=== PATIENT | female | born 1980 | race Hispanic/Latino ===

== ENCOUNTER 2016-08-28 10:27 | Day surgery (SDC) | payer OTHER ==
[2016-08-25 10:11] VITALS: BMI 21.9
[2016-08-28 11:06] LABS: MEAN CELL VOLUME 87.3 fl (81.0-99.0); MEAN CORPUSCULAR HEMOGLOBIN 29.8 pg (27.0-31.0); MEAN CORPUSCULAR HGB CONC 34.1 g/dL (33.0-37.0); RBC 4.72 Mil/uL (3.80-5.20); RED CELL DISTRIBUTION WIDTH 12.3 % (11.5-14.5); WHITE BLOOD COUNT 4.8 K/uL (4.8-10.8)
[2016-08-28] MEDS ORDERED: Bupivacaine 0.5% Inj(30mL) ONE ×2 (11:22→11:23)
[2016-08-28] MEDS ORDERED: Propofol 10 mg/ml Inj (20 ML) ONE (11:35)
[2016-08-28] MEDS ORDERED: ePHEDrine 50 mg/ml Inj ONE (11:36)
[2016-08-28] MEDS ORDERED: Midazolam 2 MG/2 ML VIAL ONE (11:36)
[2016-08-28] MEDS ORDERED: Rocuronium 10 mg/ml (5 ml) ONE (11:37)
[2016-08-28] MEDS ORDERED: Succinylcholine 200 mg/10 ml Inj IV ONE (11:37)
[2016-08-28] MEDS ORDERED: Lactated Ringer's 1,000 ML IV ONE ×3 (12:40→16:25)
[2016-08-28] MEDS ORDERED: Dexamethasone 4 mg/1 ml ONE (13:15)
[2016-08-28] MEDS ORDERED: Neostigmine Methylsulfate 3mg/3ml Syringe IV ONE (13:15)
[2016-08-28] MEDS ORDERED: Desflurane Inhalation Anesthetic Liq (240 ml) ONE (13:21)
[2016-08-28] MEDS ORDERED: Lactated Ringer's 1,000 ML IV SCH (14:11)
[2016-08-28] MEDS: HYDROmorphone 0.5 mg/0.5 ml ISec IVP PRN ×2 (14:25→14:40)
[2016-08-28] MEDS ORDERED: Oxycodone/Acetaminophen 5/325 mg Tab PO PRN (15:00)
[2016-08-28 16:42] VITALS: RESP 18
[2016-08-28 19:18] VITALS: O2SAT 99
[2016-08-28 19:21] VITALS: BP 106/65; PULSE 77; TEMP 97.9
--- NOTE | 2016-08-29 12:38 | PCM.OP ---
Operative Report - Operative Report Date of Surgery/Procedure: 08/28/16 Time of Surgery/Procedure: 07:45 Surgeon: Dr. Benitez High Project Management Engineer: Dr. Chip Bardales Anesthesia/Sedation: Dr. Anna/General Pre-Operative Diagnosis: Endometriosis abdominal pain Post-Operative Diagnosis: same Indication for Surgery: Abdominal pain. Endometriosis Operative Findings: Adhesions from endometriosis Procedure/Operation Description: 1-Lysis of sigmoid colon adhesions. Brief History: This 35 year old women was brought to operating room by Dr. Bardales when he notice adhesions in th pelvis obstruction the pelvic floor. Intraoperative consultation was obtaine [facility] general surgery. Description of the Procedure: The patient has already been brought to the operating room by Dr. Bardales (separate dictation Dr. Bardales). I took over the robotic console and the adhesions in question invovled the sigmoid colon. With blunt and sharp dissection with the aid of electrocaurtery. The colon was dissected and freed with lysis of adhesions and once completed the colon and rectum were retracted cephalad allowing view into the pelvic floor. The operation was then turmed over to Dr. Bardales (separate dictation). Estimated Blood Loss: zero Complications: none Discharge & Condition: stable
--- NOTE | 2016-09-19 12:27 | OP ---
PROCEDURE DATE: 08/28/2016 SURGEON: Chip Bardales MD HIGH [employer]CHOOL AGRIC[employer]URE TEACHER: Benitez High MD from General Surgery and Corinne Webb PA-C PREOPERATIVE DIAGNOSES: Dysmenorrhea, dyspareunia, pelvic pain, rule out pelvic endometriosis. POSTOPERATIVE DIAGNOSES: Dysmenorrhea, dyspareunia, pelvic pain, rule out pelvic endometriosis plus pelvic adhesions. PROCEDURE PERFORMED: Cystoscopy with bilateral urethral catheterization, retrograde injection of indocyanine green in the right and left ureter, diagnostic hysteroscopy, laparoscopy, robotic da Zehra, excision of endometriosis, ablation of endometriosis, and bilateral ureterolysis. There is a lysis of adhesion to be dictated separately by Dr. Benitez High. COMPLICATIONS: None. SAMPLES: Multiple samples sent to pathology. DRAINS: Dash catheter. ESTIMATED BLOOD LOSS: Minimal. HISTORY: The patient is a 35-year-old female who presents with a history of dysmenorrhea, dyspareunia, and pelvic pain. Upon examination, the patient displayed clinical signs of potential endometriosis, and she also had immunological findings suggestive of endometriosis. Prior to the surgery, she was consoled with a risk and benefits of the procedure, and we discussed the likelihood of the procedure and identify the cause of the problem and the likelihood of successful outcome and current modalities of treatment and potential risks. Ample opportunity was given to the patient to ask and receive answer to any questions, and the patient was counseled and demonstrated an understanding of the potential risks of the procedures and she signed a consent. DESCRIPTION OF PROCEDURE: After the consent was obtained, the patient was brought to the operating room and placed on the operating table in the dorsal supine position. An intravenous catheter was started; antibiotics were administered. After satisfactory anesthesia was induced, the patient was then positioned in dorsal lithotomy position, and every area prone to pressure was padded. The external genitalia in the abdomen was sterilely prepped and draped in the standard fashion and a time out was performed. At this point, the cystoscope was introduced in the bladder under direct vision, a sidhu-cystoscopy was performed and attention was paid to both ureteral orifices, which were in a normal anatomical position. The left ureteral orifice was then catheterized with a Irish open ending ureteral catheter. A solution of indocyanine green of 5 mL was injected into the left ureter and after the ureteral catheter was advanced into the distal ureter. The ureteral catheter was then removed. Attention was paid to the right ureteral orifice and at this point, a urethral catheter was advanced to the level of the right distal ureter. An additional 4 mL of indocyanine green were injected into the right ureter. The ureteral catheter was then removed. The bladder was then inspected and noted to be free of tumors, stones, or bleeding sources. The cystoscope was then removed and a 16 Irish Dash catheter was placed. At this point, attention was turned to the vaginal area, where a speculum was placed in the vagina. The anterior lip of the cervix was grasped. The uterus was dilated and the hysteroscope was inserted in the uterine cavity revealing a normal size cavity with both ureters also being visualized. At this point, the hysteroscope was removed, and a Valtchev uterine manipulator was placed in the uterus, and the attention was turned to the abdomen. An incision was made below the umbilicus with a standard open laparoscopy technique. The abdominal cavity was then entered in a blunt fashion. Under direct visualization, additional trocars were inserted, left upper quadrant, right upper quadrant, and mid quadrant. At this point, the da Zehra robot was brought on to the field and it was docked. The findings were followed. There were multiple areas which were slightly erythematous suggestive of endometriosis, mostly in the posterior cervix and the right and the left pelvic side wall. There were adhesions between the sigmoid colon and the descending colon attaching the concerning colon to the left pelvic sidewall impeding the complete vision on the left pelvic side. Dr. Benitez High from General Surgery was called in and he took down those adhesions. He will dictate this part separately. At this point, after we were able to see both sides, the ovaries were inspected and appearing to be normal and tubes were also inspected. Attention was on the left-hand side where the fluorescent technology was used to identify the ureter on the left-hand side. The peritoneum overlying the ureter was picked up, it was lifted utilizing a surgical grasper and the retroperitoneal space was entered. The ureter was gently dissected off and the area of peritoneum was sent to pathology, dissected in toto. Similarly, on the right-end side after examined the right ovarian tube, again, the right ureter was identified. The peritoneum overlying the right ureter was elevated. The retroperitoneal space was entered and the wide area of peritoneum was also excised with a partial pelvic sidewall peritonectomy being performed. At this point, we checked with fluorescence for both ureters, they are appeared to be in perfect condition. A peritoneum was also excised from the posterior cervical area. Area suspicious for superficial endometriosis was bipolar coagulated in the posterior cul-de-sac. At this point, it was checked for hemostasis, and appeared to be excellent. The pelvis was irrigated. The ureter appeared to be in excellent condition and intact and undamaged. The bowel was also in perfect condition. At this point, the robot was undocked, the abdomen was desufflated, the instruments were removed. The incisions were closed in layers with 0 PDS for the fascia. The skin was closed with 4-0 Monocryl and a surgical glue. All the instruments were removed from the vagina. The cervix was inspected and appeared to be in excellent condition. At this point, the patient was woken up and taken to the recovery room in excellent condition. Chip Bardales MD
== END 2016-08-28 18:30 | disposition home or self-care (01) ==
LOC: H.OPSURG 10:27
PROVIDERS: ATTEND Obstetrics & Gynecology Reproductive Endocrinology
DX: N80.0 Endometriosis of uterus (principal); F32.9 Major depressive disorder, single episode, unspecified; E03.9 Hypothyroidism, unspecified; R10.2 Pelvic and perineal pain; N94.6 Dysmenorrhea, unspecified; N94.10 Unspecified dyspareunia; N73.6 Female pelvic peritoneal adhesions (postinfective)